=== PATIENT | male | born 1965 | race Caucasian/White ===

== ENCOUNTER 2023-01-25 11:19 | Emergency (ER) | payer SELFPAY ==
[2023-01-25 11:59] LABS: Acetaminophen Less than 10 mcg/mL (10.0-30.0); Alcohol 106.7 mg/dL (Less than 10); Salicylate Less than 8.0 mg/dL (15.0-30.0)
[2023-01-25 12:01] LABS: ALT (SGPT) 48 U/L (8-55); AST (SGOT) 72 U/L (5-34); Albumin 3.4 g/dL (3.5-5.0); Alkaline Phosphatase 75 U/L (40-110); Anion Gap 25 mmol/L (10-20); BUN (Urea Nitrogen) 8 mg/dL (8.4-25.7); Bilirubin, Total 2.3 mg/dL (0.2-1.2); CK (CPK) 785 U/L (30-200); Calc. Creatinine Clearance 0 mL/min (70-130); Calcium 7.3 mg/dL (7.8-10.44); Carbon Dioxide 31 mmol/L (22-29); Chloride 83 mmol/L (98-107); Estimated GFR 70; Globulin 3.5 g/dL (2.4-3.5); Glucose 221 mg/dL (70-105); Protein, Total 6.9 g/dL (6.0-8.3); Sodium 137 mmol/L (136-145)
[2023-01-25 12:04] LABS: Magnesium 0.9 mg/dL (1.6-2.6)
[2023-01-25] MEDS ORDERED: Magnesium 2 GM/50 ML BAG (IN WATER) ONE (12:33)
[2023-01-25] MEDS ORDERED: Potassium Bicarbonate/Cit Ac 20 MEQ TAB ONE (12:34)
[2023-01-25] MEDS ORDERED: Potassium Chloride 20 MEQ/100 ML PREMIX BAG ONE ×2 (12:34→13:00)
[2023-01-25 12:48] LABS: INR-International Normal Ratio 1.1; Prothrombin Time 12.3 sec (9.5-12.1)
[2023-01-25] MEDS ORDERED: levETIRAcetam 500 MG/5 ML VIAL ONE (13:00)
[2023-01-25 13:17] LABS: #Basophils 0.1 10x3/uL (0.0-0.2); #Monocytes 1.4 10x3/uL (0.0-1.1); #Neutrophils 9.2 10x3/uL (1.5-8.4); %Basophils 0.9 % (0.0-2.0); %Eosinophils 0.1 % (0.0-6.0); %Lymphocytes 8.2 % (18.0-47.0); %Monocytes 12.1 % (0.0-10.0); Hematocrit 31.6 % (38.8-50.0); Hemoglobin 12.7 g/dL (13.5-17.5); Mean Corpuscular HGB CONC 40.2 g/dL (32.0-36.0); Mean Corpuscular Hemoglobin 37.8 pg (27.0-33.0); Mean Platelet Volume 9.7 fl (7.4-10.4); Platelet Count 136 10x3/uL (150-450); Red Blood Cell (RBC) Count 3.36 10x6/uL (4.32-5.72); White Blood Cell (WBC) Count 11.9 10x3/uL (3.5-10.5)
== END 2023-01-25 14:11 | disposition short-term general hospital (02) ==
LOC: CSHERS 11:19
DX: I62.00 Nontraumatic subdural hemorrhage, unspecified (principal); E87.6 Hypokalemia; E83.42 Hypomagnesemia; M62.82 Rhabdomyolysis; I10 Essential (primary) hypertension
CPT/HCPCS: 36415; 70450; 71045; 80053; 80307; 82550; 83605; 83735; 85025; 85610; 93005; 96361; 96365; 96367; 96368; J1953; J3475; J3480

== ENCOUNTER 2023-08-27 17:35 | Emergency (ER) | payer BC ==
[~2023-08-27 17:35] MED LIST: PROPOFOL 200 MG/20 ML VIAL ONE
[2023-08-27] MEDS ORDERED: Lorazepam 2 MG/ML VIAL ONE (17:56)
[2023-08-27 18:12] LABS: #Basophils 0.08 10x3/uL (0.0-0.2); #Monocytes 0.56 10x3/uL (0.0-1.1); #Neutrophils 13.74 10x3/uL (1.5-8.4); %Basophils 0.5 % (0.0-2.0); %Eosinophils 0.6 % (0.0-6.0); %Lymphocytes 16.3 % (18.0-47.0); %Monocytes 3.2 % (0.0-10.0); %Neutrophils 77.5 % (40.0-75.0); Hematocrit 36.8 % (38.8-50.0); Mean Corpuscular HGB CONC 35.3 g/dL (32.0-36.0); Mean Corpuscular Volume 93.4 fL (81.2-95.1); Mean Platelet Volume 10.2 fL (7.4-10.4); Platelet Count 247 10x3/uL (150-450); RBC Distribution Width 11.9 % (11.5-14.5); Red Blood Cell (RBC) Count 3.94 10x6/uL (4.32-5.72); White Blood Cell (WBC) Count 17.7 10x3/uL (3.5-10.5)
[2023-08-27 18:30] LABS: Troponin I Less than 0.010 ng/mL (< 0.028)
[2023-08-27 18:31] LABS: ALT (SGPT) 17 U/L (8-55); AST (SGOT) 17 U/L (5-34); Alkaline Phosphatase 114 U/L (40-110); Anion Gap 17 mmol/L (10-20); BUN (Urea Nitrogen) 17 mg/dL (8.4-25.7); Bilirubin, Total 0.3 mg/dL (0.2-1.2); CK (CPK) 95 U/L (30-200); Calc. Creatinine Clearance 0 mL/min (70-130); Calcium 9.2 mg/dL (7.8-10.44); Carbon Dioxide 22 mmol/L (22-29); Chloride 105 mmol/L (98-107); Estimated GFR 69; Globulin 4.1 g/dL (2.4-3.5); Glucose 203 mg/dL (70-105); Lipase 26 U/L (8-78); Potassium 4.5 mmol/L (3.5-5.1); Protein, Total 8.1 g/dL (6.0-8.3); Sodium 139 mmol/L (136-145)
[2023-08-27 18:32] LABS: Magnesium 1.8 mg/dL (1.6-2.6)
[2023-08-27 18:39] LABS: Acetaminophen Less than 10 mcg/mL (10.0-30.0); Alcohol Less than 10.0 mg/dL (Less than 10); Salicylate Less than 8.0 mg/dL (15.0-30.0)
[2023-08-27 18:43] LABS: Actual Bicarbonate (HCO3v) 24.5 mEq/L (22-28); Analyzer IN Cardio CS ER; Base Excess -5.1 mEq/L (-2 - +2); Calcium, Ionized (venous) 1.19 mmol/L (1.16-1.32); Chloride (VBG) 104 mmol/L (98-106); Hematocrit-VBG 40 % (42.0-52.0); Hemoglobin (Hb) 13.5 g/dL (13.1-17.2); Potassium (VBG) 4.51 mmol/L (3.70-5.30); Puncture Site Other Site; RapidComm Collect By lab; Sodium 142 mmol/L (133-146); pH (venous) 7.177 (7.32-7.43)
[2023-08-27] MEDS ORDERED: PROPOFOL 0 ML ONE (18:48)
[2023-08-27] MEDS ORDERED: Propofol 1,000 MG/100 ML VIAL IV ONE (18:48)
[2023-08-27 19:43] LABS: Actual Bicarbonate (HCO3a) 24.5 mEq/L (22-28); Analyzer IN Cardio CS ER; Base Excess (BEa) 0.6 mEq/L (-2.0 to +3.0); CO2 Tension 37.2 mmHg (35.0-45.0); Calcium, Ionized (arterial) 1.15 mmol/L (1.12-1.30); Carboxyhemoglobin (COHb) 0.3 gm% (0.0-3.0); Hematocrit-ABG 40 % (42.0-52.0); Hemoglobin (Hb) 13.5 g/dL (14.0-18.0); O2 Tension (PaO2), arterial 513.7 mmHg (80.0-100.0); Potassium - ABG Lab 4.46 mmol/L (3.70-5.30); Puncture Site LRA; pH, Arterial 7.437 (7.35-7.45)
[2023-08-27] MEDS ORDERED: cefTRIAXone (ROCEPHIN) 1 GM VIAL ONE ×2 (19:45→19:51)
[2023-08-27 19:47] LABS: Bilirubin Neg (Negative); Blood, Urine 150 (Negative); Clarity Slightly Cloudy (Clear); Glucose, Urine (Dipstick) 50 mg/dL (Negative); Ketone, Urine Negative (Negative); Leukocyte Negative (Negative); Nitrite Positive (Negative); Protein, Urine (Dipstick) 100 mg/dl (Neg-Trace); Urobilinogen Normal mg/dL (Less than 2)
[2023-08-27 19:53] LABS: Amphetamine Not Detected (NotDetected); Barbiturates Screen Not Detected (NotDetected); Benzodiazepine Screen Not Detected (NotDetected); Cocaine Metabolite Screen Not Detected (NotDetected); Methadone Not Detected (NotDetected); Methamphetamine Not Detected (NotDetected); Opiate Screen Not Detected (NotDetected); Oxycodone Screen Not Detected (NotDetected); Phencyclidine (PCP) Not Detected (NotDetected); THC/Cannabinoid Screen Not Detected (NotDetected); Tricyclic Screen Not Detected (NotDetected)
[2023-08-27] MEDS ORDERED: levETIRAcetam 500 MG (5 mL) VIAL SLOW IVP SCH (20:00)
[2023-08-27] MEDS ORDERED: fentaNYL 50 mcg/mL 1 mL Vial ONE (20:00)
[2023-08-27 20:02] LABS: Bacteria/HPF 4+ HPF (None Seen); CAUTI Indications for Culture Alt mental st,lethar; Squamous Epithelial 0-3 HPF (0-3); Urine Culture Reflex No No; WBC/HPF 0-3 HPF (0-3)
== END 2023-08-27 20:36 | disposition short-term general hospital (02) ==
LOC: CSHERS 17:35
DX: K29.70 Gastritis, unspecified, without bleeding (principal); N39.0 Urinary tract infection, site not specified
CPT/HCPCS: 31500; 36415; 36600; 51702; 70450; 71045; 80053; 80177; 80306; 80307; 81001; 82550; 82805; 83605; 83690; 83735; 83880; 84484; 85025; 87040; 93005; 94002; 96365; 96366; 96374; 96375; 99292; J0696; J1953; J2060; J2704; J3010

== ENCOUNTER 2023-09-10 11:17 | Emergency (ER) | payer BC ==
[2023-09-10] MEDS ORDERED: Lorazepam 2 MG/ML VIAL ONE (11:55)
[2023-09-10] MEDS ORDERED: levETIRAcetam 500 MG (5 mL) VIAL ONE (12:11)
[2023-09-10 12:59] LABS: #Basophils 0.05 10x3/uL (0.0-0.2); #Monocytes 0.62 10x3/uL (0.0-1.1); #Neutrophils 7.54 10x3/uL (1.5-8.4); %Basophils 0.5 % (0.0-2.0); %Lymphocytes 24.2 % (18.0-47.0); %Monocytes 5.7 % (0.0-10.0); %Neutrophils 69.2 % (40.0-75.0); Hemoglobin 11.3 g/dL (13.5-17.5); Mean Corpuscular HGB CONC 34.2 g/dL (32.0-36.0); Mean Corpuscular Hemoglobin 31.8 pg (27.0-33.0); Mean Platelet Volume 10.1 fL (7.4-10.4); Platelet Count 207 10x3/uL (150-450); RBC Distribution Width 11.9 % (11.5-14.5); Red Blood Cell (RBC) Count 3.55 10x6/uL (4.32-5.72); White Blood Cell (WBC) Count 10.9 10x3/uL (3.5-10.5)
[2023-09-10 13:14] LABS: ALT (SGPT) 13 U/L (8-55); AST (SGOT) 19 U/L (5-34); Albumin 3.7 g/dL (3.5-5.0); Alkaline Phosphatase 77 U/L (40-110); Anion Gap 17 mmol/L (10-20); BUN (Urea Nitrogen) 18 mg/dL (8.4-25.7); Bilirubin, Total 0.7 mg/dL (0.2-1.2); Calc. Creatinine Clearance 0 mL/min (70-130); Calcium 8.7 mg/dL (7.8-10.44); Carbon Dioxide 21 mmol/L (22-29); Chloride 106 mmol/L (98-107); Estimated GFR 88; Globulin 3.2 g/dL (2.4-3.5); Glucose 68 mg/dL (70-105); Potassium 3.8 mmol/L (3.5-5.1); Protein, Total 6.9 g/dL (6.0-8.3); Sodium 140 mmol/L (136-145)
[2023-09-10 15:20] LABS: Amphetamine Not Detected (NotDetected); Barbiturates Screen Not Detected (NotDetected); Benzodiazepine Screen Not Detected (NotDetected); Cocaine Metabolite Screen Not Detected (NotDetected); Methadone Not Detected (NotDetected); Methamphetamine Not Detected (NotDetected); Opiate Screen Not Detected (NotDetected); Oxycodone Screen Not Detected (NotDetected); Phencyclidine (PCP) Not Detected (NotDetected); THC/Cannabinoid Screen Detected (NotDetected); Tricyclic Screen Not Detected (NotDetected)
== END 2023-09-10 17:52 | disposition home or self-care (01) ==
LOC: CSHERS 11:17
DX: R56.9 Unspecified convulsions (principal); I10 Essential (primary) hypertension; Z91.148 Patient's other noncompliance with medication regimen for other reason
CPT/HCPCS: 80053; 80306; 85025; 93005; 96374; 96375; J1953; J2060